=== PATIENT | female | born 1980 | race Caucasian/White ===

== ENCOUNTER 2022-11-26 09:58 | Outpatient (CLI) | payer OTHER, BC, SELFPAY ==
--- NOTE | 2022-12-04 15:15 | WPDHOMESLEEP ---
Sleep Study - Home Unattended Date of Study: 11/26/22 Ordering Provider: [place] APRN Interpreting Provider: Kristy Uriarte, DO Home Sleep Study Type: Watch PAT Height: 1.6 m Weight: 54.431 kg Body Mass Index: 21.2 Neck Circumference (inches): 12 [place]: 0 Reason for Sleep Study Snoring, daytime hypersomnia, insomnia Sleep History The patient is a 42-year-old female with depression, insomnia and history of tobacco use that had a sleep study ordered by her primary care for evaluation of sleep disturbances. The patient denies awakening from sleep short of breath. She rarely awakens at night with heartburn, belching or cough. She frequently snores and it is occasionally loud enough that others complain. She rarely has trouble sleeping when she has a cold. She denies waking up gasping for air throughout the night. She denies having breathing problems at night observed by herself or others. She occasionally sweats excessively at night. She rarely has heart palpitations or irregular heartbeats during the night. She denies falling asleep during the day and while driving. She denies sleep paralysis, cataplexy and hypnagogic / hypnopompic hallucinations. She constantly has trouble at school or work due to sleepiness. She denies feeling afraid of going to sleep. She denies having nightmares. She rarely remembers her dreams. She occasionally has thoughts racing through her mind. She occasionally feels sad, depressed and anxious. She occasionally has muscular tension. She denies noticing parts of her body jerk. She rarely kicks during the night. She denies having crawling and aching feelings in her legs and denies having leg pain during the night. She rarely grinds her teeth during sleep and never awakens with morning jaw pain. She is rarely bothered by pain during the day and never awakened by pain during the night. She occasionally wakes up feeling stiff in the morning. She frequently wakes up with sore or achy muscles. She occasionally wakes up with pain in the neck, spine and other joints. She goes to bed at 10:00 p.m. on weekdays and at midnight on the weekends. It takes her 30 minutes to fall asleep. She wakes up 3-4 times throughout the night to urinate. She is able to fall back asleep within 15-30 minutes. She wakes up at 6:45 a.m. on weekdays and at 9:00 a.m. on the weekends. She typically gets 8 hours of sleep per night. She will stay in bed for an hour after waking up on the weekends. She currently lives with her and child. She does not consume any caffeinated beverages within 2 hours of bedtime. He does not engage in physical exercise before bedtime. She will read and watch television before falling asleep. She denies taking naps in the afternoon or the evening. She consumes 2 cups of caffeinated beverage per day. She consumes alcohol on the weekends. She is a former smoker. She denies recreational drug use. [facility] Past Medical History Medical History Depression Screening for cardiovascular condition Screening for lipid disorders Surgical History Surgical History [place] teeth removed Family History Family History Mother Family history of diabetes mellitus in first degree relative Other Diabetes mellitus Social History Social History Smoking packs per day: 1 Smoking cigarettes per day: 20.0 Years smoked: 15 Smoking pack-years: 15.00 Smoking status: Former smoker Tobacco type: cigarettes and e-cigarettes/vaping Second hand tobacco smoke exposure: Yes Smoking end date: 09/16/16 Alcohol intake: current Drinks per week: 6 Substance use: never Substance use type: does not use Lack of Transportation: No Lack of Food:
[2022-12-04 15:27] VITALS: BMI 21.2
== END 2022-11-27 08:10 | disposition home or self-care (01) ==
PROVIDERS: PCP Internal Medicine; Visit Provider Nurse Practitioner
DX: G47.00 Insomnia, unspecified (principal); G47.9 Sleep disorder, unspecified
CPT/HCPCS: 95800

== ENCOUNTER 2023-12-31 16:02 | Outpatient (CLI) | payer BC, SELFPAY ==
--- NOTE | ~2023-12-31 | MM_ITS ---
EXAMINATION: MM screening terri BI w apple HISTORY: Screening TECHNIQUE: Craniocaudal and mediolateral oblique 3-D tomosynthesis images were obtained and synthetic 2-D images were generated. CAD analysis was submitted and interpreted. COMPARISON: No prior mammogram is available for comparison at this institution. BREAST PARENCHYMAL COMPOSITION: Dense: The breasts are extremely dense, which lowers the sensitivity of mammography. FINDINGS: There is no evidence of suspicious mass, calcification, or architectural distortion to sugg est malignancy in either breast. There has been no suspicious interval change. IMPRESSION: 1. No mammographic evidence of malignancy. 2. Recommend routine screening mammography in one year. BI-RADS Category 1: Negative Reviewed, dictated and finalized at location B.
== END 2023-12-31 16:03 ==
LOC: MICIMG 16:03
PROVIDERS: PCP Obstetrics & Gynecology; Visit Provider Obstetrics & Gynecology
DX: Z12.31 Encounter for screening mammogram for malignant neoplasm of breast (principal)
CPT/HCPCS: 77063; 77067